=== PATIENT | female | born 1955 | race Two or more races ===

== ENCOUNTER 2018-11-29 12:54 | Emergency (ER) | payer MEDICAID, OTHER ==
[~2018-11-29] VITALS: Ht 167.6 cm; Wt 65.9 kg
[2018-11-29] MEDS ORDERED: Guaifenesin (13:18)
[2018-11-29] MEDS ORDERED: CLAR1TAB13 PO (13:18)
[2018-11-29] MEDS ORDERED: GLUC500C37 PO (13:18)
[2018-11-29] MEDS ORDERED: PROBCAP14 PO (13:18)
[2018-11-29] MEDS ORDERED: LORA1TAB12 (13:18)
[2018-11-29] MEDS ORDERED: TUMS500C PO (13:18)
[2018-11-29] MEDS ORDERED: FISH1000 PO (13:18)
[2018-11-29] MEDS ORDERED: IPRA0.00 NEB (13:18)
[2018-11-29] MEDS ORDERED: PROAAER10 INH (13:18)
[2018-11-29] MEDS ORDERED: TESS100C PO (13:18)
[2018-11-29] MEDS ORDERED: PRED20TA (13:18)
[2018-11-29] MEDS ORDERED: methylPREDNISolone INJ 125 MG/2 ML VIAL (J2930) IV ONE (14:15)
--- NOTE | 2018-11-29 14:33 | REP ---
Car Jackie chest PA and lateral views: There are no comparisons. The lung bynum appear hyperinflated. Lung bynum otherwise clear. Cardiac size is normal. The hieu, mediastinum, and skeletal structures are unremarkable except for bilateral shoulder osteoarthritis. Impression: Hyperinflation. Bilateral shoulder osteoarthritis. Electronically Signed by Stan Landrum MD 11/29/2018 02:25 P
[2018-11-29 14:37] LABS: ABG BASE EXCESS -2.7 (-2.0-2.0); ABG HCO3 20.6 MEQ/L (22.0-26.0); ABG O2 SATURATION 94.4 % (95.0-99.0); ABG PARTIAL PRESSURE CO2 31.8 mmHg (35.0-45.0); ABG PARTIAL PRESSURE O2 70.1 mmHg (75.0-100.0); ABG STANDARD HCO3 22.2 MEQ/L (22.0-26.0); ABG TOTAL CO2 21.6 MEQ/L (23.0-31.0)
[2018-11-29] MEDS: IPRATROPIUM 0.5MG/ALBUTEROL 2.5MG INH SOL UD 3ML (DUONEB)(J7620) NEB PRN ×2 (14:40→14:49)
[2018-11-29 14:48] LABS: BASO # 0.1 10^3/uL (0.0-0.2); BASO % 0.9 % (0.0-1.0); EOS # 0.4 10^3/uL (0.0-0.50); EOS % 5.4 % (0.0-3.0); HEMATOCRIT 40.5 % (36.0-47.0); HEMOGLOBIN 13.3 g/dl (12.0-15.5); LYMPH # 1.8 10^3/uL (1.5-4.5); LYMPH % 22.8 % (24.0-44.0); MEAN CORPUSCULAR HGB CONC 32.8 g/dl (32.0-36.5); MEAN CORPUSCULAR VOLUME 91.4 fl (80.0-96.0); MONO # 0.5 10^3/uL (0.0-0.8); NEUTROPHILS # 5.2 10^3/uL (1.8-7.7); NEUTROPHILS % 64.6 % (36.0-66.0); PLATELET COUNT, AUTOMATED 344 10^3/uL (150-450); RED BLOOD COUNT 4.43 10^6/uL (4.00-5.40)
[2018-11-29 15:05] LABS: ALT/SGPT 23 U/L (12-78); BILIRUBIN,DIRECT < 0.1 MG/DL (0.0-0.2); BILIRUBIN,TOTAL 0.3 MG/DL (0.2-1.0); BLOOD UREA NITROGEN 12 MG/DL (7-18); CALCIUM LEVEL 9.2 MG/DL (8.8-10.2); CARBON DIOXIDE LEVEL 22 MEQ/L (21-32); CHLORIDE LEVEL 109 MEQ/L (98-107); CK-MB VALUE MASS 1.3 NG/ML (<3.6); CPK CREATINE PHOSPHOKINASE 144 U/L (26-192); CREATININE FOR GFR 1.06 MG/DL (0.55-1.30); GLOMERULAR FILTRATION RATE 55.7 (>45); GLUCOSE, FASTING 90 MG/DL (70-100); POTASSIUM SERUM 4.4 MEQ/L (3.5-5.1); SODIUM LEVEL 139 MEQ/L (136-145); TOTAL PROTEIN 7.4 GM/DL (6.4-8.2); TROPONIN I < 0.02 NG/ML (< 0.10)
[2018-11-29] MEDS ORDERED: PULM90IN INH (16:17)
[2018-11-29] MEDS ORDERED: ATIV1TAB7 PO (16:17)
[2018-11-29 16:26] VITALS: BP 122/75
--- NOTE | 2018-11-30 15:29 | ECGEPIP ---
[facility] - ED Test Date: 2018-11-29 Pat Name: LOUISA RUBIO Department: Room: - Gender: Female Recreation Clerk: JOSE MARIA : 1955 Requested By: OLYA SUN Order Number: [id number] Reading MD: Kayli Vásquez Measurements Intervals Pearson Rate: 97 P: 92 OH: 135 QRS: 67 QRSD: 77 T: 84 QT: 315 QTc: 402 Interpretive Statements SINUS RHYTHM low voltage limb NSTTW abnormalities PRWP No prior Electronically Signed on 11-30-2018 15:29:21 EDT by Kayli Vásquez
[2018-12-04 14:13] LABS: BORDETELLA PARAPERTUSSIS PCR Negative (Negative); BORDETELLA PERTUSSIS BY PCR Negative (Negative)
== END 2018-11-29 16:46 | disposition home or self-care (01) ==
LOC: M ED 12:54
DX: J44.1 Chronic obstructive pulmonary disease with (acute) exacerbation (principal); Z87.891 Personal history of nicotine dependence; Z79.899 Other long term (current) drug therapy; Z79.52 Long term (current) use of systemic steroids
CPT/HCPCS: 36415; 36600; 71046; 80048; 80076; 82550; 82553; 82803; 85025; 87040; 87486; 87581; 87633; 87798; 93005; 93041; 94640; 96374; 99284; J2930

== ENCOUNTER → 2020-12-24 | Outpatient (CLI) | payer MEDICARE ==
[~2020-12-24] MED LIST: ATIV1TAB7 PO; CLAR1TAB13 PO; FISH1000 PO; GLUC500C37 PO; Guaifenesin; IPRA0.00 NEB; LORA1TAB4; PRED20TA; PROAAER10 INH; PROBCAP14 PO; PULM90IN INH; TESS100C PO; TUMS500C PO
--- NOTE | 2020-12-24 10:18 | REP ---
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 Patient relates resection history of a mole on her back with positive margins. COMPARISON: None. TECHNIQUE: Fifty-three minutes following the intravenous injection of a 9.91 mCi dose of F-18 FDG, three-dimensional PET scintigraphy is acquired from the skull vertex to the toes. Triplanar noncontrast CT scanning is acquired through the same anatomic range for attenuation correction, and image registration with scan parameters optimized to minimize radiation exposure to the patient. PET scintigraphy and CT datasets were fused and displayed on a workstation with multiplanar and projection display capability. FINDINGS: Incidental findings include bilateral glenohumeral joint osteoarthritis, left more so than right with bilateral loose bodies. There are granulomatous calcifications in lymph nodes in the right hilus. A small hiatal hernia is noted. Vascular calcification is observed. There are a few punctate calcifications in the pancreatic head which may reflect prior episodes of pancreatitis and there is pancolonic diverticulosis. On PET scintigraphy, head and neck soft tissues are unremarkable. There is no evidence of supraclavicular, subclavicular, or axillary lymphadenopathy. No abnormal soft tissue uptake is seen in the extra thoracic skin or soft tissues. No abnormal pulmonary parenchymal uptake is seen. No abnormal hilar or mediastinal uptake is observed. In the abdomen and pelvis, there is normal hepatic, splenic, gastrointestinal, and genitourinary FDG accumulation. Lower extremity study shows normal variant skeletal muscle uptake in the calves. No abnormal cutaneous or subcutaneous uptake is seen. No evidence of abnormal inguinal popliteal or pelvic sierra uptake. IMPRESSION: Negative PET scintigraphy. <Electronically signed by Joseph Goldstein > 12/24/20 [id number]
== END ==
LOC: M PLARAD 07:29
PROVIDERS: ATTEND Surgery
DX: C43.59 Malignant melanoma of other part of trunk (principal)
CPT/HCPCS: 78816; A9552

== ENCOUNTER → 2021-02-16 | Outpatient (CLI) | payer MEDICARE ==
--- NOTE | 2021-02-18 11:24 | REP ---
INDICATION: ABN XRAY OF LT SHOULDER. COMPARISON: Radiographs 01/24/2021. TECHNIQUE: Coronal oblique T1, T2 fat sat, sagittal oblique T2 fat sat, axial T2 fat sat, gradient echo. FINDINGS: Rotator cuff: There is moderate diffuse tendinopathy/tendinitis of the supraspinatus tendon, with a full-thickness partial tear. Acromioclavicular joint: There are mild hypertrophic degenerative changes of the acromioclavicular joint. Acromion: Type 2 Biceps Tendon: The biceps tendon is within the bicipital groove with moderate surrounding fluid compatible with tenosynovitis. Hill Sach's deformity: None. Deltoid muscle: No abnormal signal. Biceps labral complex: There is fraying of the biceps labral complex. Labrum: There appears to be a diffuse SLAP tear. Cartilage: There is severe chondromalacia at the glenohumeral joint. Bone marrow: There is moderate subchondral marrow edema and cystic change throughout the glenoid, to a minimal extent in the humeral head. There is moderate spurring of the glenoid and humeral head. Joint fluid: There is a moderate joint effusion. A heterogeneous joint body is seen in the subcoracoid region measuring approximately 2.0 x 1.7 x 2.6 cm, accounting for the sclerotic abnormality on the recent plain radiographs. IMPRESSION: Moderate diffuse tendinopathy/tendinitis of the supraspinatus tendon with a full-thickness partial tear. Mild hypertrophic degenerative changes acromioclavicular joint. Moderate fluid surrounding the biceps tendon within the bicipital groove is compatible with tenosynovitis. There is fraying of the biceps labral complex and there appears to be a diffuse SLAP tear. There is severe chondromalacia of the glenohumeral joint with spurring at the margins of the joint and associated subchondral marrow edema and cystic change. Moderate joint effusion. Subcoracoid joint body corresponds to the sclerotic abnormality described on recent radiographs. <Electronically signed by Stan Mcintosh > 02/18/21 [id number]
== END ==
LOC: M RAD 12:27
PROVIDERS: ATTEND Physician Assistant
DX: M75.32 Calcific tendinitis of left shoulder (principal)

== ENCOUNTER → 2021-08-20 | Outpatient (REF) | payer MEDICARE | LOC: M SFHCDERM 14:15 | PROVIDERS: ATTEND Nurse Practitioner Family | DX: D22.5 Melanocytic nevi of trunk (principal) ==

== ENCOUNTER → 2021-09-18 | Outpatient (REF) | payer MEDICARE | LOC: M SFHCDERM 17:14 | PROVIDERS: ATTEND Physician Assistant | DX: L90.5 Scar conditions and fibrosis of skin (principal) ==

== ENCOUNTER → 2021-10-07 | Outpatient (CLI) | payer MEDICARE ==
[2021-10-07 10:58] LABS: HEMATOCRIT 38.6 % (36.0-47.0); HEMOGLOBIN 12.6 g/dl (12.0-15.5); MEAN CORPUSCULAR HEMOGLOBIN 28.9 pg (27.0-33.0); MEAN CORPUSCULAR HGB CONC 32.6 g/dl (32.0-36.5); MEAN CORPUSCULAR VOLUME 88.5 fl (80.0-96.0); PLATELET COUNT, AUTOMATED 327 10^3/uL (150-450); RED BLOOD COUNT 4.36 10^6/uL (4.00-5.40); WHITE BLOOD COUNT 4.8 10^3/uL (4.0-10.0)
[2021-10-07 11:09] LABS: INR 0.89; PROTHROMBIN TIME 12.4 SECONDS (12.7-14.5)
[2021-10-07 11:20] LABS: ERYTHROCYTE SEDIMENTATION RATE 15 mm/hr (0-30)
[2021-10-07 11:35] LABS: ALBUMIN 4.1 GM/DL (3.2-5.2); ALT/SGPT 24 U/L (12-78); BILIRUBIN,TOTAL 0.4 MG/DL (0.2-1.0); BLOOD UREA NITROGEN 11 MG/DL (7-18); CALCIUM LEVEL 10.1 MG/DL (8.8-10.2); CARBON DIOXIDE LEVEL 25 MEQ/L (21-32); CHLORIDE LEVEL 110 MEQ/L (98-107); GLOMERULAR FILTRATION RATE > 60.0 (>45); GLUCOSE, FASTING 86 MG/DL (70-100); POTASSIUM SERUM 4.8 MEQ/L (3.5-5.1); SODIUM LEVEL 142 MEQ/L (136-145); TOTAL PROTEIN 7.2 GM/DL (6.4-8.2)
== END ==
LOC: M RAD 09:56
PROVIDERS: ATTEND Orthopaedic Surgery
DX: Z01.818 Encounter for other preprocedural examination (principal); Z16.11 Resistance to penicillins; Z79.01 Long term (current) use of anticoagulants

== ENCOUNTER → 2022-08-21 | Outpatient (CLI) | payer MEDICARE ==
[2022-08-21 11:30] LABS: BASO # 0.1 10^3/uL (0.0-0.2); BASO % 0.7 % (0.0-1.0); EOS # 0.1 10^3/uL (0.0-0.5); EOS % 1.1 % (0.0-3.0); HEMATOCRIT 36.6 % (36.0-47.0); HEMOGLOBIN 11.5 g/dl (12.0-15.5); LYMPH # 1.5 10^3/uL (1.5-5.0); LYMPH % 20.7 % (24.0-44.0); MEAN CORPUSCULAR HEMOGLOBIN 27.9 pg (27.0-33.0); MEAN CORPUSCULAR HGB CONC 31.4 g/dl (32.0-36.5); MEAN CORPUSCULAR VOLUME 88.8 fl (80.0-96.0); MONO # 0.7 10^3/uL (0.0-0.8); MONO % 9.3 % (2.0-8.0); NEUTROPHILS % 67.8 % (36.0-66.0); PLATELET COUNT, AUTOMATED 442 10^3/uL (150-450); RED BLOOD COUNT 4.12 10^6/uL (4.00-5.40); WHITE BLOOD COUNT 7.4 10^3/uL (4.0-10.0)
[2022-08-21 12:04] LABS: ERYTHROCYTE SEDIMENTATION RATE 41 mm/hr (0-30)
== END ==
LOC: M PLALAB 08:08
PROVIDERS: ATTEND Internal Medicine Infectious Disease
DX: T14.8XXA Other injury of unspecified body region, initial encounter (principal); Z96.642 Presence of left artificial hip joint

== ENCOUNTER → 2022-08-27 | Outpatient (CLI) | payer MEDICARE ==
[~2022-08-27] MED LIST changes: +ISOVUE-300 61% 100ML VIAL As Ordered ONE; +LIDOCAINE 1% MDV 20ML VIAL As Ordered ONE
[2022-08-27 11:37] VITALS: BP 123/74
== END ==
LOC: M IRPRO 11:23
PROVIDERS: ATTEND Orthopaedic Surgery
DX: M25.452 Effusion, left hip (principal)

== ENCOUNTER → 2022-11-07 | Outpatient (CLI) | payer MEDICARE ==
[~2022-11-07] MED LIST changes: -ISOVUE-300 61% 100ML VIAL As Ordered ONE; -LIDOCAINE 1% MDV 20ML VIAL As Ordered ONE; +LORA1TAB23; -LORA1TAB4
== END ==
LOC: M RAD 06:35
PROVIDERS: ATTEND Orthopaedic Surgery
DX: Z96.642 Presence of left artificial hip joint (principal); T14.8XXA Other injury of unspecified body region, initial encounter; W18.30XA Fall on same level, unspecified, initial encounter; Y92.009 Unspecified place in unspecified non-institutional (private) residence as the place of occurrence of the external cause
CPT/HCPCS: 78800; A9569

== ENCOUNTER → 2022-11-10 | Outpatient (CLI) | payer MEDICARE | LOC: M RAD 10:19 | PROVIDERS: ATTEND Orthopaedic Surgery | DX: Z96.642 Presence of left artificial hip joint (principal); T14.8XXA Other injury of unspecified body region, initial encounter; W18.30XA Fall on same level, unspecified, initial encounter; Y92.009 Unspecified place in unspecified non-institutional (private) residence as the place of occurrence of the external cause | CPT/HCPCS: 78315; A9503 ==

== ENCOUNTER → 2022-11-24 | Outpatient (CLI) | payer MEDICARE ==
[~2022-11-24] MED LIST changes: +LIDOCAINE 1% MDV 20ML VIAL As Ordered ONE
[2022-11-24 13:29] LABS: SOURCE, BODY FLUID LT HIP; SYNOVIAL FLUID COLOR ORANGE (COLORLESS)
== END ==
LOC: M IRPRO 11:31
PROVIDERS: ATTEND Orthopaedic Surgery
DX: T14.8XXA Other injury of unspecified body region, initial encounter (principal); Z96.642 Presence of left artificial hip joint

== ENCOUNTER → 2024-04-21 | Outpatient (CLI) | payer MEDICARE ==
[~2024-04-21] MED LIST changes: +BUDE90AE INH; -LIDOCAINE 1% MDV 20ML VIAL As Ordered ONE; -PULM90IN INH
== END ==
LOC: M PLAIMG 10:20
PROVIDERS: ATTEND Internal Medicine Pulmonary Disease
DX: J45.40 Moderate persistent asthma, uncomplicated (principal); R05.9 Cough, unspecified

== ENCOUNTER → 2024-07-28 | Outpatient (CLI) | payer MEDICARE | LOC: M RAD 13:08 | PROVIDERS: ATTEND Surgery | DX: C43.59 Malignant melanoma of other part of trunk (principal) ==